=== PATIENT | male | born 1950 | race Caucasian/White ===

== ENCOUNTER → 2017-11-27 | Outpatient (CLI) | payer MEDICARE, OTHER ==
[~2017-11-27] MED LIST: ACET-1966 PO; ASPI-1471 PO; FLE100 PO; MELO-207 PO
--- NOTE | 2017-11-27 16:38 | RADIOLOGY IMAGING REPORT ---
FACILITY: [facility] [place] PATIENT NAME: James Restrepo : 1950 MR: [id number] V: [id number] EXAM DATE: ORDERING PHYSICIAN: MAYE NOEL TECHNOLOGIST: Location: [facility] [place] Patient: James Restrepo : 1950 Visit/Account:[id number] Date of Sevice: 11/27/2017 Study: LUMBAR SPINE 2 OR 3 VIEW Indication: Pain Comparison study: None available Findings: AP and lateral views of the lumbosacral spine demonstrates no evidence of compression fract ure. There is no evidence of spondylolisthesis. There is no evidence of lytic or blastic bony lesions . There is mild degenerative disease present. The pedicles are unremarkable. IMPRESSION: Mild degenerative disease, otherwise unremarkable. Report Dictated By: Dion Kitchen at 11/27/2017 4:25 PM Report E-Signed By: Dion Kitchen at 11/27/2017 4:33 PM WSN:[id number]
== END ==
LOC: RAD 14:54
PROVIDERS: ATTEND Internal Medicine
DX: M47.896 Other spondylosis, lumbar region (principal)
CPT/HCPCS: 72100

== ENCOUNTER 2017-12-10 14:30 | Outpatient (RCR) | payer MEDICARE, OTHER ==
--- NOTE | 2017-12-05 15:15 | PT INITIAL EVALUATION ---
MEDICAL DIAGNOSIS: chronic back pain TREATMENT DIAGNOSIS: same with radiating back pain DATE OF ONSET: 09/06/17 SUBJECTIVE: James Restrepo presents to physical therapy with complaints of low back pain with radiating pain down his L LE that started in August 2017 following an incident where he lifted too much weight. 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 He reports that his pain feels better with bending, running, and lying on R side. He reports that the pain feels worse with sitting, standing, and walking. He reports that he feels like the low back pain is getting better. He also reports that he received a steroid injection that did not help at all. He reports that he had an xray in Aug 2017. He denies any unexplained weight loss, night pain, surgeries, or changes in bladder or gait. He reports that he is planning for a trip that will require him to walk 300 miles in March and would like to do it in a painfree manner. He reports that the pain feels better with improvements in posture. Pain location is L3-5 spinous process, L anterior hip (groin region), lateral/posterior thigh and described as achy. REHAB PROBLEM LIST: Increased Pain Decreased ROM Decreased Strength Decreased Endurance Decreased Function PREVIOUS MEDICAL HISTORY: See EMR OCCUPATION: Retired teacher OBJECTIVE: Posture: He demonstrated minimal B rounded shoulder, forward head, increased thoracic kyphosis, decreased lumbar lordosis, and no signs of a lateral shift. ROM: Trunk AROM: flexion: NIL with painful end feel. extension: NIL with muscular end feel. side gliding R: NIL with painful end feel. side gliding L: NIL with muscular end feel. Strength: Palpation: TTP: L3-5 spinous process, L anterior hip (groin region), L PSIS, and radiating pain down lateral/posterior thigh Sensation: Intact L2-S2 Special Tests: Repeated extension: stretch during the test and worse following the test. Repeated flexion in lying: stretch during the test and worse following test with peripheralization down his L LE. Repeated R sidegliding: stretch during the test and better following the test with centralized low back pain. Mobility: Independent Gait: No gait deviation noted Balance: Will test in the future but no balance deficits noted on initial impressions Other Objective Findings: ASSESSMENT: James will benefit from skilled physical therapy addressing the listed impairments to improve function and QOL. Based on his examination, his provisional diagnosis is a lateral derangement that responded well to lateral based specific exercise. Short Term Goals 1 week: Pt will demonstrate centralized low back pain to improve function and QOL. 3 weeks: Pt will demonstrate abolished low back pain to improve function and QOL. 6 weeks: Pt will demonstrate return to prior level of function with 0/10 low back pain to improve function and QOL. Patient's Goals reduce low back pain PLAN: Patient to be seen for Manual Therapy/STM/MET Strengthening/condition Range of Motion Spinal Stabilization Work Hardening/Cond Stretching Neuromuscular Re-ed Closed Chain Program Posture/Body mechanics Home Exercise Program Therapeutic Activities 2x/Week for 6 Weeks If you have any questions, comments, or concerns about this report or plan, please contact me at . Thank you, Misha Reddy, PT, DPT DIPAKD
== END 2017-12-10 18:00 | disposition home or self-care (01) ==
LOC: PT 14:30
PROVIDERS: ATTEND Internal Medicine
DX: M54.9 Dorsalgia, unspecified (principal)
CPT/HCPCS: 97162

== ENCOUNTER 2018-02-27 09:02 | Day surgery (SDC) | payer MEDICARE, OTHER ==
[2018-02-26 09:40] LABS: INR 1.01
[2018-02-27] VITALS (8 sets, daily range): BP systolic 111–128; BP diastolic 77–92
[~2018-02-27 09:02] MED LIST changes: +CYCL10TA29 PO; +IBUP800T37 PO; +METH4TAB66 PO
--- NOTE | 2018-02-27 11:45 | RADIOLOGY IMAGING REPORT ---
FACILITY: [facility] [place] PATIENT NAME: James Restrepo : 1950 MR: [id number] V: [id number] EXAM DATE: ORDERING PHYSICIAN: KATHY NELSON TECHNOLOGIST: Location: [facility] Patient: James Restrepo : 1950 Visit/Account:[id number] Date of Sevice: 02/27/2018 EXAMINATION: Lumbar spine CT myelogram HISTORY: Lumbar radiculopathy. COMPARISON: Lumbar spine radiographs dated 11/27/2017. TECHNIQUE: Axial CT of the lumbar spine after the administration of intrathecal contrast material. Sagittal and coronal reformats. One of the following dose optimization techniques was utilized in the performance of this exam: Autom ated exposure control; adjustment of the mA and/or kV according to the patient's size; or use of an i terative reconstruction technique. Specific details can be referenced in the facility's radiology C T exam operational policy. CONTRAST: 12 mL of intrathecal Isovue-200 FINDINGS: Alignment: 3 mm of retrolisthesis of L3 over L4. 2 mm of retrolisthesis of L4 over L5. Mild convex leftward curvature. Vertebral bodies: Negative. Posterior elements: Multilevel facet hypertrophy. Hardware: None. Soft tissues: Soft tissue contrast posteriorly on the right at L3-L4. Otherwise negative. Visualized retroperitoneal / abdominal structures: Moderate aortoiliac calcification without aneurysm . Distal colonic diverticulosis. Disc Spaces: L1-2: Mild disc bulge. No significant stenosis. L2-3: Mild disc bulge and facet hypertrophy. No significant spinal canal stenosis. Mild to moderate bilateral neural foraminal stenosis. L3-4: 3 mm of retrolisthesis. Mild disc height loss with circumferential disc bulge and facet hypert rophy. There may be a left foraminal/extraforaminal disc extrusion. No significant spinal canal selvin nosis. Moderate to severe bilateral neural foraminal stenosis, left worse than right. L4-5: 2 mm of retrolisthesis. Mild disc height loss with circumferential disc bulge and facet hypert rophy. Mild spinal canal stenosis. Mild to moderate left and moderate to severe right neural forami nal stenosis. L5-S1: Moderate disc height loss with circumferential disc bulge and facet hypertrophy. No significa nt spinal canal stenosis. Mild right and moderate left neural foraminal stenosis. IMPRESSION: Multilevel degenerative disc disease and facet hypertrophy with grade 1 retrolisthesis of L3 over L4 and L4 over L5 and mild convex leftward curvature. Report Dictated By: Jorge Brand MD at 02/27/2018 11:04 AM Report E-Signed By: Jorge Brand MD at 02/27/2018 11:40 AM WSN:[email or web address]
--- NOTE | 2018-02-27 14:39 | RADIOLOGY IMAGING REPORT ---
FACILITY: [facility] [place] PATIENT NAME: James Restrepo : 1950 MR: [id number] V: [id number] EXAM DATE: ORDERING PHYSICIAN: KATHY NELSON TECHNOLOGIST: Location: [facility] Patient: James Restrepo : 1950 Visit/Account:[id number] Date of Sevice: 02/27/2018 LUMBAR MYELOGRAM INDICATION: Left leg numbness. Low back pain. COMPARISON: Lumbar spine radiographs dated 11/27/2017. DOSE: DAP was 199.86 microGy*m2. FINDINGS: Informed consent was obtained. A timeout was performed. Using sterile technique and local anesthesia, a lumbar puncture was performed under fluoroscopic guid ance at the L3-4 level using a 22-gauge spinal needle. 12 mL of Isovue-200M was injected into the spinal canal under fluoroscopic guidance. There were no immediate complications. IMPRESSION: Lumbar myelogram was performed, as detailed above. CT imaging was subsequently performed . Report Dictated By: Jorge Brand MD at 02/27/2018 2:33 PM Report E-Signed By: Jorge Brand MD at 02/27/2018 2:35 PM WSN:[email or web address]
== END 2018-02-27 14:30 | disposition home or self-care (01) ==
LOC: OR 09:02
PROVIDERS: ATTEND Orthopaedic Surgery
DX: M54.16 Radiculopathy, lumbar region (principal); M51.16 Intervertebral disc disorders with radiculopathy, lumbar region; Z01.812 Encounter for preprocedural laboratory examination
CPT/HCPCS: 36415; 72132; 85049; 85610; 85730